=== PATIENT | male | born 1965 | race Two or more races ===

== ENCOUNTER 2019-04-30 20:40 | Emergency (ER) | payer BC ==
[~2019-04-30] VITALS: Ht 177.8 cm; Wt 113.4 kg
[2019-04-30] MEDS ORDERED: ALTEPLASE 100 MG/VIAL VIAL IV ONE ×2 (20:47→22:00)
--- NOTE | 2019-04-30 20:49 | NUR ---
DR. ANGELO AT BEDSIDE FOR EVAL.
--- NOTE | 2019-04-30 20:50 | NUR ---
CODE STROKE ACTIVATED PER DR. ANGELO
--- NOTE | 2019-04-30 20:50 | NUR ---
Brandi durham in [facility] - 04/30/19 at 2059 by KALEY ZACHARY JASMINE FOR DR. ANGELO
[2019-04-30] MEDS ORDERED: IV NS 0.9% 250 ML IV ONE (20:54)
[2019-04-30] MEDS ORDERED: IOHEXOL-350 100 ML VIAL IV ONE (20:54)
[2019-04-30] MEDS ORDERED: CT SWABBABLE VALVE TRANS SET 1 EA INFUS.SET MC ONE (20:54)
[2019-04-30 20:58] LABS: BASOPHILS # (AUTO) 0.1 /CMM (0.0-0.2); BASOPHILS % (AUTO) 0.9 % (0.0-2.0); EOSINOPHILS % (AUTO) 1.4 % (0.0-6.0); HEMATOCRIT 41 % (39-51); HEMOGLOBIN 14.2 g/dL (13.5-17.5); LYMPHOCYTES # (AUTO) 1.6 /CMM (0.8-4.8); LYMPHOCYTES % (AUTO) 18.6 % (20.0-44.0); MEAN CORPUSCULAR HGB CONC 34 g/dl (31.0-36.0); MEAN CORPUSCULAR VOLUME 87 fL (80-96); MONOCYTES # (AUTO) 0.7 /CMM (0.1-1.30); MONOCYTES % (AUTO) 8.6 % (2.0-12.0); NEUTROPHILS # (AUTO) 5.9 /CMM (1.8-8.9); NEUTROPHILS % (AUTO) 70.5 % (43.0-81.0); PLATELET COUNT (AUTO) 229 /CMM (150-450); RED BLOOD CELL COUNT(AUTO) 4.76 MIL/uL (4.5-6.0); WHITE BLOOD COUNT (AUTO) 8.4 K/uL (4.3-11.0)
[2019-04-30 21:10] LABS: CALCIUM, SERUM 9.3 mg/dL (8.5-10.1); CARBON DIOXIDE 26 mmol/L (21-32); CHLORIDE 102 mmol/L (98-107); CREATININE 1.3 mg/dL (0.6-1.3); GLUCOSE 121 mg/dL (74-106); POTASSIUM 3.8 mmol/L (3.5-5.1); SODIUM SERUM 133 mmol/L (136-145); UREA NITROGEN, BLOOD 24 mg/dL (7-18)
--- NOTE | 2019-04-30 21:12 | NUR ---
PT RETURN FROM [facility] VIA [facility].
[2019-04-30 21:16] LABS: ALANINE AMINOTRANSFERASE 22 U/L (12-78); ALBUMIN 3.7 g/dL (3.4-5.0); ALKALINE PHOSPHATASE 146 U/L (46-116); BILIRUBIN,DIRECT 0.1 mg/dL (0.0-0.2); BILIRUBIN,TOTAL 0.3 mg/dL (0.2-1.0); TOTAL PROTEIN, SERUM 7.4 g/dL (6.4-8.2)
[2019-04-30 21:17] LABS: CHOLESTEROL 164 mg/dL (<200); HDL CHOLESTEROL 26 mg/dL (40-60); LDL 107 mg/dL (0-99); TRIGLYCERIDES 391 mg/dL (30-150)
[2019-04-30] MEDS ORDERED: LORAZEPAM INJ 2 MG/ML VIAL ONE ×2 (21:45→22:35)
[2019-04-30] MEDS ORDERED: ASPIRIN 325 MG TABLET ONE (21:45)
[2019-04-30 21:54] LABS: ASPARTATE AMINOTRANSFERASE 16 U/L (15-37)
[2019-04-30] MEDS ORDERED: LORAZEPAM INJ 2 MG/ML VIAL IV ONE ×2 (22:00→23:00)
[2019-04-30] MEDS ORDERED: ASPIRIN 325 MG TABLET PO ONE (22:00)
--- NOTE | 2019-04-30 22:10 | NUR ---
tPA consent signed and tPA infusion started.
[2019-04-30] MEDS ORDERED: LABETALOL HCL IV 100MG VIAL ONE (22:36)
[2019-04-30] MEDS ORDERED: BUPR100T13 PO (22:54)
[2019-04-30] MEDS ORDERED: LABETALOL 20 MG/4 ML VIAL IV ONE (23:00)
[2019-04-30 23:14] VITALS: BP 186/82
--- NOTE | 2019-04-30 23:32 | NUR ---
Report given to Saige MITCHELL for continuation of care.
--- NOTE | 2019-04-30 23:37 | NUR ---
[place] CCT team at bedside for tansport to [facility].
== END 2019-04-30 23:37 | disposition short-term general hospital (02) ==
LOC: ER 20:46
DX: I63.9 Cerebral infarction, unspecified (principal); F32.9 Major depressive disorder, single episode, unspecified; Z60.2 Problems related to living alone
CPT/HCPCS: 36415; 37195; 70450; 70496; 70498; 71045; 80048; 80061; 80076; 82962; 84484; 85025; 85730; 93005; 96374; 96375; 96376; 99291; J2060 ×2; J3490 ×2; J7030; J7050; Q9967; J2997